=== PATIENT | male | born 2000 ===

== ENCOUNTER 2025-06-11 23:09 | Emergency (ER) | payer SELFPAY ==
[2025-06-11 23:17] VITALS: BP 134/87; BP 137/83; PULSE 69; PULSE 84; RESP 17; TEMP 36.9; O2SAT 100; O2SAT 97; BMI 20.1
[2025-06-11 23:41] VITALS: BP 137/83; PULSE 69; RESP 17; TEMP 36.9; O2SAT 100
--- NOTE | 2025-06-11 23:49 | PC.NURSE ---
Addendum entered by Nilam Mcelroy RN 06/12/25 00:06: pts parents found SI note left behind by pt given to Sara ALEMAN, copy of note in chart Original Note: pt biba after being found by PD standing on the side of a bridge endorsing SI. Pt placed on [address] by PD. Per EMS pt calm and cooperative for PD and during transport. Upon arrival pt calm, asking many questions during chart changer. Pt stated he got into an argument with his partner leading him to want to kill himself. Pt states he punched himself a few times on the side of his head (pt has notable brusing and swelling to left side of head) and walked from [facility] to the bridge to jump off. Pt states about 3 months ago he was seeing a therapist who had him on medications, he was asked to attend a group meeting to go over the medications and because he refused the prescriptions stopped and he has been off his meds for the last 3 months. Pt also stated he is currently taking lithium, last dose was last night. Pt admits to having passive SI thoughts for the last 3 months thinking of various ways to kill himself daily. Pt currently endorsing SI with no specific plan.
[2025-06-12 00:07] LABS: MANUAL DIFF FLAG NO
[2025-06-12 00:08] LABS: Hematocrit 47.7 % (42.0-52.0); Hemoglobin 16.4 g/dl (14.0-18.0); Imm Gran Abs Auto 0.03 X10*3/uL (0.00-0.03); Imm Gran Pct Auto 0.2 % (0.0-0.4); Lymphocytes Absolute Auto 1.9 X10*3/uL (1.2-4.9); Mean Corpuscular HGB Conc 34.4 g/dl (31.0-36.0); Mean Corpuscular Hemoglobin 30.4 pg (27.0-33.0); Mean Corpuscular Volume 88.3 fL (80.0-98.0); NRBC Abs Auto 0.000 X10*3/uL (0.0-0.012); NRBC Pct Auto 0.0 /100WBC (0.0-0.2); Platelet Count 193 X10*3/uL (160-400); Red Blood Count 5.40 X10*6/uL (4.60-5.80); White Blood Count 13.1 X10*3/uL (4.8-10.8)
[2025-06-12 00:20] LABS: Alanine Aminotransferase 22 U/L (0-40); Albumin Level 5.0 g/dL (3.5-5.0); Alkaline Phosphatase 86 U/L (39-117); Anion Gap 13 (12-20); Aspartate Amino Transferase 30 U/L (5-37); Blood Urea Nitrogen 20 mg/dL (9-16); Calcium 10.0 mg/dL (8.4-10.2); Carbon Dioxide 28 mmol/L (22-29); Chloride 104 mmol/L (96-108); Creatinine Clr Calc Pharmacy 91.3; Estimated Glomerular Filt Rate > 60; Potassium 4.1 mmol/L (3.3-5.1); Sodium 141 mmol/L (135-145); Total Protein 7.5 g/dL (6.5-8.0)
[2025-06-12 00:23] LABS: Acetaminophen LAB < 3 mcg/mL (<30); Salicylate < 5.0 mg/dL (15-30)
[2025-06-12 00:32] LABS: Appearance Urine Clear; Glucose Urine UA Negative (Negative); PH 6.0 (5.0-9.0); Specific Gravity - Urine 1.025 (1.005-1.025)
--- NOTE | 2025-06-12 00:45 | ED_ITS ---
HPI - Psych General Chief Complaint: Psychiatric Symptoms Stated Complaint: SI, w/ plan to jump off bridge, [place] [address] Time Seen by Provider: 06/11/25 23:16 History of Present Illness ED Provider: Vamsi Solorio MD HPI Narrative: Brought in on [place] for suicidal ideation plan to jump off a bridge. Patient offers minimal additional history when I interview him. Any additional history is provided by PD found him at the scene. Patient left a note with various statements saying he wanted to and he was apologizing to his parents. Patient tells me that he is adherent with lithium and buspirone. Acknowledges smoking marijuana no other drug use. He reports to me that he has been punching himself in the right side of the head repeatedly no other self-injurious behavior. Related Data Home Medications ?Medication ?Instructions ?Recorded ?Confirmed bupropion HCl 300 mg 24 hr tablet, 300 mg PO BEDTIME 0 06/12/25 06/12/25 extended release lithium carbonate 600 mg capsule 600 mg PO QPM 5 06/12/25 Allergies Allergy/AdvReac Type Severity Reaction Status Date / Time tree nut Allergy Itching Verified 06/12/25 04:30 [facility] Social History Social History Smoked in Last 30 Days: No Use of substances other than those prescribed or required for medical reasons: Yes Substance Use Type: Marijuana Advance Directives: No Advance Directives Information Provided: Yes Physical Exam 2 Exam: Exam: EXAM: Gen: Alert, awake, well appearing, well hydrated. Head: About a 3 cm hematoma of the right temporal region he tells me this is self-inflicted from punching the site of his head. Eyes: Anicteric, Normal conjunctiva. ENT: Moist mucosa, no pallor. ? Neck: Supple. Skin: ?No observable rash or bruising on exposed or examined skin Respiratory: Breathing comfortably, No distress.Clear to auscultation bilaterally, symmetric chest expansion, No wheeze, rales, ronchi. Cardiovascular: Regular rate and rhythm. No murmurs or rub. Well perfused periphery, warm extremities. No edema. ? Abdominal: No focal tenderness. Soft, no objective distension. No palpable masses or obvious organomegaly. ?No guarding, no rebound tenderness or other peritoneal findings. : No flank tenderness. Neuro: Alert. Gross movement of all extremities intact. ?Cranial nerves 2-12 grossly intact. Psych: Calm. Flat affect. Poor eye contact. Acknowledges suicidal plan. MSK: No grossly visible deformity. Vital signs: See flowsheet Vital Signs: Vital Signs: Last Vital Signs Temp 98.5 F 06/12/25 11:01 Pulse 74 06/12/25 11:01 Resp 16 06/12/25 11:01 BP 129/80 06/12/25 11:01 Pulse Ox 99 06/12/25 11:01 O2 Del Method Room Air 06/12/25 11:01 BMI result Body Mass Index 20.1 Course Course Course Narrative: Time: 08:38 Date: 06/12/25 Provider: Nadia Nath, Patient in physician observation for psychiatric evaluation.? No acute events reported overnight. No current complaints. VS stable.? Pending CARE team evaluation. Will continue to monitor. Reevaluation(s) Reevaluation #1: Time: 10:47 Date: 06/12/25 Provider: Nadia Nath DO Physician observation ended at 1047am. Patient has been cleared for discharge by the CARE team. Will follow up as an outpatient. family and patient on board no known prior attempts Medications Administered Discontinued Medications Generic Name Dose Route Start Last Admin Trade Name Freq PRN Reason Stop Dose Admin Acetaminophen 650 mg 06/12/25 00:51 06/12/25 01:03 Acetaminophen 325 Mg Tablet PO 06/12/25 00:52 Not Given ONCE ONE Medical Decision Making Medical Decision Making MDM Narrative: Medical Decision Making: [age] male suicidal ideation. Minimal history provided by him police provide that the patient left suicide plan note and was standing on a rail on a bridge. [place]. No acute medical emergency. Self-inflicted superficial injuries to the right temporal region no indication for advanced imaging. Grossly intact neurologic exam. No acute psychosis. Patient reports taking lithium and buspirone. 0700: signed out to Dr. Nath to follow CARE/Behavioral team eval. Pt to me appears high risk SI given the actions he took, my interview with him and review of the letter he wrote. Preliminary Favored Differential Diagnosis: Depression, suicidal ideation, self-injurious behavior, unlikely but we will check for lithium toxicity among additional considered etiologies Testing Interpreted Independently: Not Applicable Radiology or Lab testing Results Reviewed: Not Applicable Consults: Care team Independent Historians/External Chart Reviews: Not Applicable Social Determinants of Health Impacting MDM/Planning: Not Applicable Lab Data 06/11/25 23:58 06/11/25 23:59 Labs: Lab Results 06/11/25 06/11/25 06/12/25 Range/Units 23:58 23:59 00:21 WBC 13.1 H (4.8-10.8) X10*3/uL RBC 5.40 (4.60-5.80) X10*6/uL Hgb 16.4 (14.0-18.0) g/dl Hct 47.7 (42.0-52.0) % MCV 88.3 (80.0-98.0) fL MCH 30.4 (27.0-33.0) pg MCHC 34.4 (31.0-36.0) g/dl RDW 11.9 (11.0-16.0) % Plt Count 193 (160-400) X10*3/uL MPV 11.8 (9.4-12.4) fL Immature Gran % (Auto) 0.2 (0.0-0.4) % Neut % (Auto) 72.3 (45-73) % Lymph % (Auto) 14.6 L (20-40) % [place] % (Auto) 10.1 (2-11) % Eos % (Auto) 2.5 (0-4) % Baso % (Auto) 0.3 (0-2) % Lymph # (Auto) 1.9 (1.2-4.9) X10*3/uL [place] # (Auto) 1.3 H (0.1-1.2) X10*3/uL Eos # (Auto) 0.3 (0.0-0.4) X10*3/uL Baso # (Auto) 0.0 (0.0-0.2) X10*3/uL Abs Immat Gran (auto) 0.03 (0.00-0.03) X10*3/uL Absolute Neuts (auto) 9.4 H (2.0-8.3) x10*3/uL Absolute Nucleated RBC 0.000 (0.0-0.012) X10*3/uL Nucleated RBC % (auto) 0.0 (0.0-0.2) /100WBC Sodium 141 (135-145) mmol/L Potassium 4.1 (3.3-5.1) mmol/L Chloride 104 (96-108) mmol/L Carbon Dioxide 28 (22-29) mmol/L Anion Gap 13 (12-20) BUN 20 H (9-16) mg/dL Creatinine 1.12 (0.5-1.4) mg/dL Estim Creat Clear Calc 91.3 Estimated GFR > 60 Random Glucose 120 H (60-115) mg/dL Calcium 10.0 (8.4-10.2) mg/dL Total Bilirubin 0.4 (0.0-1.0) mg/dL AST 30 (5-37) U/L ALT 22 (0-40) U/L Alkaline Phosphatase 86 (39-117) U/L Total Protein 7.5 (6.5-8.0) g/dL Albumin 5.0 (3.5-5.0) g/dL Urine Color Urine Appearance Urine pH (5.0-9.0) Ur Specific [place] (1.005-1.025) Urine Protein (Neg-Trace) mg/dL Urine Glucose (UA) (Negative) mg/dL Urine Ketones (Negative) mg/dL Urine Blood (Negative) Urine Nitrite (Negative) Ur Leukocyte Esterase (Negative) Salicylates < 5.0 L (15-30) mg/dL Urine Opiates Screen Not Detected (Not Detect) Ur Buprenorphine Scrn Not Detected (Not Detect) ng/mL Ur Oxycodone Screen Not Detected (Not Detect) ng/mL Urine Methadone Screen Not Detected (Not Detect) ng/mL Urine Fentanyl Screen Not Detected (Not Detect) Acetaminophen < 3 (<30) mcg/mL Ur Barbiturates Screen Not Detected (Not Detect) Valproic Acid < 12.5 L (50.0-100.0) mcg/mL Ur Phencyclidine Scrn Not Detected (Not Detect) Ur Amphetamines Screen Not Detected (Not Detect) U Benzodiazepines Scrn Not Detected (Not Detect) [place] (0.60-1.20) mmol/L Urine Cocaine Screen Not Detected (Not Detect) U Marijuana (THC) Screen POSITIVE H (Not Detect) Ethyl Alcohol 10 mg/dL 06/12/25 06/12/25 Range/Units 00:22 00:41 WBC (4.8-10.8) X10*3/uL RBC (4.60-5.80) X10*6/uL Hgb (14.0-18.0) g/dl Hct (42.0-52.0) % MCV (80.0-98.0) fL MCH (27.0-33.0) pg MCHC (31.0-36.0) g/dl RDW (11.0-16.0) % Plt Count (160-400) X10*3/uL MPV (9.4-12.4) fL Immature Gran % (Auto) (0.0-0.4) % Neut % (Auto) (45-73) % Lymph % (Auto) (20-40) % [place] % (Auto) (2-11) % Eos % (Auto) (0-4) % Baso % (Auto) (0-2) % Lymph # (Auto) (1.2-4.9) X10*3/uL [place] # (Auto) (0.1-1.2) X10*3/uL Eos # (Auto) (0.0-0.4) X10*3/uL Baso # (Auto) (0.0-0.2) X10*3/uL Abs Immat Gran (auto) (0.00-0.03) X10*3/uL Absolute Neuts (auto) (2.0-8.3) x10*3/uL Absolute Nucleated RBC (0.0-0.012) X10*3/uL Nucleated RBC % (auto) (0.0-0.2) /100WBC Sodium (135-145) mmol/L Potassium (3.3-5.1) mmol/L Chloride (96-108) mmol/L Carbon Dioxide (22-29) mmol/L Anion Gap (12-20) BUN (9-16) mg/dL Creatinine (0.5-1.4) mg/dL Estim Creat Clear Calc Estimated GFR Random Glucose (60-115) mg/dL Calcium (8.4-10.2) mg/dL Total Bilirubin (0.0-1.0) mg/dL AST (5-37) U/L ALT (0-40) U/L Alkaline Phosphatase (39-117) U/L Total Protein (6.5-8.0) g/dL Albumin (3.5-5.0) g/dL Urine Color Yellow Urine Appearance Clear Urine pH 6.0 (5.0-9.0) Ur Specific [place] 1.025 (1.005-1.025) Urine Protein Negative (Neg-Trace) mg/dL Urine Glucose (UA) Negative (Negative) mg/dL Urine Ketones Negative (Negative) mg/dL Urine Blood Negative (Negative) Urine Nitrite Negative (Negative) Ur Leukocyte Esterase Negative (Negative) Salicylates (15-30) mg/dL Urine Opiates Screen (Not Detect) Ur Buprenorphine Scrn (Not Detect) ng/mL Ur Oxycodone Screen (Not Detect) ng/mL Urine Methadone Screen (Not Detect) ng/mL Urine Fentanyl Screen (Not Detect) Acetaminophen (<30) mcg/mL Ur Barbiturates Screen (Not Detect) Valproic Acid (50.0-100.0) mcg/mL Ur Phencyclidine Scrn (Not Detect) Ur Amphetamines Screen (Not Detect) U Benzodiazepines Scrn (Not Detect) [place] 0.20 L (0.60-1.20) mmol/L Urine Cocaine Screen (Not Detect) U Marijuana (THC) Screen (Not Detect) Ethyl Alcohol mg/dL Discharge Plan Discharge Clinical Impression: Suicidal ideation Patient Disposition: Home, Self-Care Instructions: Help Prevent Suicide (ED) Additional Instructions: You were seen in our Emergency Department today for treatment of a behavioral health issue. It is important after your visit that you follow up with either your behavioral health provider or a primary care doctor within 7 days.? If you have trouble finding a therapist you can reach out to [place] [phone] The National Suicide and Crisis Lifeline can be reached 7 days a week 24 hours a day.? Call 988 to speak with someone.? Return for any worsening symptoms or concerns such as thoughts of self harm or harm to others. Please call 911 if you feel your mental health is worsening.? Prescriptions: No Action lithium carbonate 600 mg capsule 600 mg PO QPM bupropion HCl 300 mg tablet extended release 24 hr 300 mg PO BEDTIME Interventions: [place]igg-Suicide Risk Severity Scale Last Done: 06/11/25 23:41 ED Discharge Assessment Last Done: 06/12/25 11:01 Discharge Date/Time: 06/12/25 11:04 Print Language: Maltese
[2025-06-12 01:06] LABS: Cannabinoid Screen Urine POSITIVE (Not Detect)
[2025-06-12 01:39] LABS: Lithium 0.20 mmol/L (0.60-1.20)
--- NOTE | 2025-06-12 07:12 | PC.NURSE ---
Assumed care of patient at 0645, patient appears to be in no apparent distress this am, sitting in room, offering no complaints to this RN. Continue plan of care for CARE team carleeal
--- NOTE | 2025-06-12 07:23 | PC.NURSE ---
Pt reports frustration in being here, endorsing never having been through this process. Pt sitting in corner of room, staring at wall but does easily engage in conversation with this RN. Pt did willingly accept activities such as word searches, coloring pages and books. Pt asking this RN for euthanasia papers . This RN encouraged pt to reach out if anything is needed throughout the shift. Pt aware of plan of care for CARE team kam although reports frustration in having to wait
--- NOTE | 2025-06-12 07:31 | PC.NURSE ---
RE; med rec This Rn completed med rec with verbal confirmation from patient, He reports taking lithium and wellbutrin both at night and last dose was yesterday 06/11. Matching claims in medication record
[2025-06-12 11:01] VITALS: BP 129/80; PULSE 74; RESP 16; TEMP 36.9; O2SAT 99
--- NOTE | 2025-06-14 12:18 | MHC.CARE ---
CARE team followed up with patients father via phone to check on patients current status and informed him of referral made to [facility]. He reported patient (his son) has been doing ok and getting back in the swing of things, he went back to work today .He reports patient does really need a therapists and father was provided contact information for [facility] for patient to call if he does not here from them to schedule intake appointment.
== END 2025-06-12 11:04 | disposition home or self-care (01) ==
PROVIDERS: Emergency Provider Emergency Medicine
DX: S00.83XA Contusion of other part of head, initial encounter (principal); X83.8XXA Intentional self-harm by other specified means, initial encounter; R45.851 Suicidal ideations; F12.90 Cannabis use, unspecified, uncomplicated; Y93.9 Activity, unspecified; Y92.9 Unspecified place or not applicable; Y99.9 Unspecified external cause status; Z79.899 Other long term (current) drug therapy
CPT/HCPCS: 36415; 80053; 80143; 80164; 80178; 80179; 80307; 81003; 85025; 99285; S9485